=== PATIENT | male | born 1950 | race African-American/Black ===

== ENCOUNTER 2020-08-20 11:29 | Emergency (ER) | payer MEDICARE, BC ==
[2020-08-20] MEDS ORDERED: niCARdipine 20MG In NaCl 20 MG/200 ML BAG ONE ×4 (11:36→15:34)
[2020-08-20] MEDS ORDERED: Ondansetron PF 4 MG/2 ML Vial ONE ×2 (12:52→15:24)
[2020-08-20] MEDS ORDERED: Morphine 4 MG/ML VIAL ONE ×2 (12:52→15:24)
== END 2020-08-20 15:41 | disposition short-term general hospital (02) ==
LOC: ERS 11:29
DX: I60.9 Nontraumatic subarachnoid hemorrhage, unspecified (principal); I67.1 Cerebral aneurysm, nonruptured; E11.9 Type 2 diabetes mellitus without complications; I10 Essential (primary) hypertension; E78.5 Hyperlipidemia, unspecified; M10.9 Gout, unspecified; Z87.891 Personal history of nicotine dependence; Z79.899 Other long term (current) drug therapy; Z79.84 Long term (current) use of oral hypoglycemic drugs
CPT/HCPCS: 96365; 96366; 96375; 96376; J2270; J2405